=== PATIENT | male | born 2005 | race Caucasian/White ===

== ENCOUNTER 2023-06-29 14:19 | Inpatient (IN) | payer OTHER ==
[~2023-06-29] VITALS: Ht 167.6 cm; Wt 94.8 kg
[~2023-06-29 14:19] MED LIST: MECL25CH85 PO; ZOFR4T PO
[2023-06-29 15:45] LABS: Basophils # (auto) 0.1 10 ^3/uL (0-0.2); Basophils % (auto) 0.5 % (0.0-2.0); Eosinophils # (auto) 0.1 10 ^3/uL (0-0.8); Eosinophils % (auto) 0.6 % (0.0-7.0); Hemoglobin 14.1 g/dL (13.5-17.5); Lymphocytes % (auto) 13.5 % (10.0-50.0); Mean Corpuscular Hemoglobin 29.3 pg (28.0-32.0); Mean Corpuscular Hgb Conc. 32.8 g/dL (32.0-36.0); Mean Corpuscular Volume 89.3 fL (80.0-100.0); Monocytes # (auto) 0.7 10 ^3/uL (0-1.3); Monocytes % (auto) 4.6 % (0.0-12.0); Neutrophils # (auto) 12.2 10 ^3/uL (1.6-8.6); Neutrophils % (auto) 80.8 % (37.0-80.0); Red Blood Cells 4.82 10^6/uL (4.5-5.90); Red Cell Distribution Width 13.4 % (11.8-14.3); White Blood Cell 15.1 10^3/uL (4.4-10.8)
[2023-06-29] MEDS: SODIUM CHLORIDE 0.9% 1,000 ML IV SCH (15:45)
[2023-06-29] MEDS ORDERED: ONDANSETRON HCL 4 MG/2 ML VIAL IV PRN (15:45)
[2023-06-29] MEDS: SODIUM CHLORIDE 0.9% 1,000 ML IV ONE (15:49)
[2023-06-29 16:06] LABS: Alanine Aminotransferase 15 U/L (7-40); Albumin 4.9 g/dL (3.2-4.8); Alkaline Phosphatase 62 U/L (46-116); Anion Gap 9 (5-15); Aspartate Aminotransferase 20 U/L (13-40); Bilirubin, Total 0.2 mg/dL (0.2-1.0); Blood Alcohol < 3.0 mg/dL (<10); Blood Urea Nitrogen 8 mg/dL (9-23); Calcium 9.7 mg/dL (8.5-10.1); Carbon Dioxide 21 mmol/L (20-30); Chloride 107 mmol/L (98-107); Glucose 85 mg/dL (74-106); Sodium 137 mmol/L (136-145); Total Protein 7.6 g/dL (5.7-8.2)
[2023-06-29] MEDS: cefTRIAXone 1GM/50ML D5W 50 ML IV ONE (16:31)
[2023-06-29 20:55] LABS: Urine Bacteria None Seen /hpf (None Seen)
[2023-06-29 21:11] LABS: Acetaminophen < 2.0 UG/ML (10.0-20.0); Salicylate 21.7 mg/dL (2.8-20.0)
[2023-06-29 21:22] LABS: Amphetamine Screen, Urine Neg (NEGATIVE); Barbiturate Scree,Urine Neg (NEGATIVE); Benzodiazephine Screen, Urine Neg (NEGATIVE); Cannabinoid Screen, Urine Pos (NEGATIVE); Cocaine Screen, Urine Neg (NEGATIVE); Opiate Scree,Urine Neg (NEGATIVE); Phencyclidine Screen, Urine Neg (NEGATIVE)
[2023-06-29 21:40] LABS: Urine Blood Negative /uL (Negative); Urine Clarity Clear (Clear); Urine Color Colorless (Yellow); Urine Protein, UAD Negative (Negative); Urine Urobilinogen Normal (Negative); Urine WBC 3 /hpf (0 - 3); Urine pH 6.5 (5.0-9.0)
[2023-06-29 22:23] LABS: Alanine Aminotransferase 14 U/L (7-40); Albumin 4.5 g/dL (3.2-4.8); Alkaline Phosphatase 55 U/L (46-116); Anion Gap 10 (5-15); Aspartate Aminotransferase 9 U/L (13-40); BUN/Creatinine Ratio 7.3 (10.0-20.0); Bilirubin, Total 0.2 mg/dL (0.2-1.0); Blood Urea Nitrogen 7 mg/dL (9-23); Carbon Dioxide 18 mmol/L (20-30); Chloride 114 mmol/L (98-107); Glucose 94 mg/dL (74-106); Potassium 4.1 mmol/L (3.5-5.1); Sodium 142 mmol/L (136-145); Total Protein 6.9 g/dL (5.7-8.2)
[2023-06-29] MEDS: SODIUM BICARB 50mEq/50ml Vial 150 ML in SOD CHL 0.45% 1,000 ML IV ONE (22:43)
[2023-06-29] MEDS: SODIUM BICARB 8.4% 50Meq/50ml SYR INJ ONE (22:43)
[2023-06-29] MEDS ORDERED: MORPHINE SULFATE INJ 2 MG/ml SYRG IV PRN (23:30)
[2023-06-29] MEDS ORDERED: DOCUSATE SOD 100 MG CAP PO PRN (23:30)
[2023-06-29] MEDS ORDERED: NITROGLYCERIN 0.4 MG SL TAB SL PRN (23:30)
[2023-06-29] MEDS ORDERED: ESCI1TAB37 PO (23:43)
[2023-06-29] MEDS ORDERED: LAMO100T44 PO (23:43)
[2023-06-29] MEDS ORDERED: HYDR50CA2 PO (23:43)
[2023-06-30] MEDS: hydrOXYzine 25 MG TAB or CAP PO PRN (00:42)
[2023-06-30 01:21] LABS: Alanine Aminotransferase 14 U/L (7-40); Alkaline Phosphatase 56 U/L (46-116); Aspartate Aminotransferase 9 U/L (13-40); Chloride 114 mmol/L (98-107); Sodium 142 mmol/L (136-145)
[2023-06-30 01:22] LABS: Bilirubin, Total 0.2 mg/dL (0.2-1.0)
[2023-06-30 01:57] LABS: Anion Gap 11 (5-15); Carbon Dioxide 17 mmol/L (20-30)
[2023-06-30 02:02] LABS: BUN/Creatinine Ratio 7.2 (10.0-20.0); Blood Urea Nitrogen 7 mg/dL (9-23); Glucose 100 mg/dL (74-106)
[2023-06-30 02:04] LABS: Albumin 4.6 g/dL (3.2-4.8)
[2023-06-30 05:00] LABS: Basophils # (auto) 0 10 ^3/uL (0-0.2); Basophils % (auto) 0.2 % (0.0-2.0); Eosinophils # (auto) 0 10 ^3/uL (0-0.8); Hematocrit 39.1 % (41.0-53.0); Hemoglobin 12.9 g/dL (13.5-17.5); Lymphocytes # (auto) 0.9 10 ^3/uL (0.4-5.4); Lymphocytes % (auto) 5.2 % (10.0-50.0); Mean Corpuscular Hemoglobin 29.6 pg (28.0-32.0); Mean Corpuscular Volume 89.6 fL (80.0-100.0); Monocytes # (auto) 0.3 10 ^3/uL (0-1.3); Neutrophils % (auto) 92.6 % (37.0-80.0); Red Blood Cells 4.37 10^6/uL (4.5-5.90); Red Cell Distribution Width 13.5 % (11.8-14.3); White Blood Cell 17.3 10^3/uL (4.4-10.8)
[2023-06-30] MEDS: SODIUM BICARB 50mEq/50ml Vial 150 ML in SOD CHL 0.45% 1,000 ML IV ONE (05:40)
[2023-06-30 05:43] LABS: Alanine Aminotransferase 12 U/L (7-40); Alkaline Phosphatase 56 U/L (46-116); Anion Gap 12 (5-15); BUN/Creatinine Ratio 6.3 (10.0-20.0); Blood Urea Nitrogen 6 mg/dL (9-23); Calcium 8.8 mg/dL (8.5-10.1); Carbon Dioxide 20 mmol/L (20-30); Chloride 112 mmol/L (98-107); Glucose 106 mg/dL (74-106); Potassium 3.7 mmol/L (3.5-5.1); Sodium 144 mmol/L (136-145)
[2023-06-30 05:44] LABS: Albumin 4.4 g/dL (3.2-4.8); Aspartate Aminotransferase 9 U/L (13-40); Bilirubin, Total < 0.2 mg/dL (0.2-1.0); Total Protein 6.8 g/dL (5.7-8.2)
[2023-06-30] MEDS: SODIUM BICARB 8.4% 50Meq/50ml SYR Vial IV ONE (05:51)
[2023-06-30 08:00] VITALS: RESP 18; O2SAT 98
[2023-06-30] MEDS: PANTOPRAZOLE 40 MG TAB PO SCH (10:12)
[2023-06-30] MEDS: lamoTRIgine 100 MG TAB PO SCH (10:12)
[2023-06-30] MEDS: CITALOPRAM HYDROBR 20 MG TAB PO SCH (10:12)
[2023-06-30] MEDS: cefTRIAXone 1GM/50ML D5W 50 ML IV SCH (10:13)
[2023-06-30] MEDS: ONDANSETRON HCL 4 MG/2 ML VIAL IV PRN (10:13)
[2023-06-30] MEDS: SODIUM BICARB 50mEq/50ml Vial 50 ML in SOD CHL 0.45% 1,000 ML IV SCH (16:30)
[2023-06-30 18:18] LABS: Chloride 109 mmol/L (98-107); Potassium 2.8 mmol/L (3.5-5.1); Sodium 141 mmol/L (136-145)
[2023-06-30 18:19] LABS: Anion Gap 7 (5-15); Carbon Dioxide 25 mmol/L (20-30)
[2023-06-30 18:20] LABS: Calcium 8.3 mg/dL (8.5-10.1)
[2023-06-30 18:24] LABS: BUN/Creatinine Ratio 8.7 (10.0-20.0); Blood Urea Nitrogen 8 mg/dL (9-23); Glucose 81 mg/dL (74-106)
[2023-06-30] MEDS: POTASSIUM EFFERVESENT TAB 25 MEQ PO ONE (19:02)
[2023-06-30 22:42] LABS: Chloride 109 mmol/L (98-107); Potassium 3.5 mmol/L (3.5-5.1); Sodium 141 mmol/L (136-145)
[2023-06-30 22:43] LABS: Anion Gap 6 (5-15); Calcium 8.8 mg/dL (8.5-10.1); Carbon Dioxide 26 mmol/L (20-30)
[2023-06-30 22:48] LABS: Blood Urea Nitrogen 9 mg/dL (9-23); Glucose 95 mg/dL (74-106)
[2023-07-01 01:11] VITALS: BP 110/57; PULSE 87; RESP 18; TEMP 98.5; O2SAT 98
== END 2023-07-01 01:14 | disposition short-term general hospital (02) | DRG 918 ==
LOC: ER 14:19 → OVERFLOW 23:30
PROVIDERS: ADMIT Nurse Practitioner Acute Care; ATTEND Nurse Practitioner Acute Care
DX: T39.012A Poisoning by aspirin, intentional self-harm, initial encounter (principal); R45.851 Suicidal ideations; F31.9 Bipolar disorder, unspecified; F41.9 Anxiety disorder, unspecified; F17.210 Nicotine dependence, cigarettes, uncomplicated; Y92.89 Other specified places as the place of occurrence of the external cause
CPT/HCPCS: 36415; 71045; 80048; 80053; 80307; 80320; 80329; 81001; 85025; 87040; 93005; G0378